=== PATIENT | male | born 1965 | race American Indian/Alaskan Native ===

== ENCOUNTER 2024-06-13 10:04 | Inpatient (IN) | payer BC ==
[2024-06-13 10:47] LABS: HEMATOCRIT 41.7 % (42.0-52.0); HEMOGLOBIN 14.5 g/dL (14.0-18.0); MEAN CORPUSCULAR HEMOGLOBIN 30.7 pg (28.0-32.0); MEAN CORPUSCULAR HGB CONC 34.8 g/dL (32.0-36.0); MEAN CORPUSCULAR VOLUME 88.2 fL (83.0-99.0); MEAN PLATELET VOLUME 8.2 fL (9.4-12.4); PLATELET COUNT,PLT 379 K/uL (150-400); RED BLOOD CELL COUNT 4.73 M/uL (4.52-5.90)
[2024-06-13 10:54] LABS: WHITE BLOOD CELL COUNT,WBC 33.35 K/uL (3.9-11.3)
[2024-06-13] MEDS ORDERED: Sodium Chloride 0.9% 10 ML Syringe FLUSH PRN ×2 (10:54→16:32)
[2024-06-13] MEDS ORDERED: Sodium Chloride 0.9% 2.5 ML Syringe FLUSH PRN ×2 (10:54→16:32)
[2024-06-13 11:15] LABS: A/G RATIO 0.8 (0.9-1.6); ALBUMIN 3.3 g/dL (3.4-5.0); BILIRUBIN TOTAL 1.3 mg/dL (0.2-1.0); CALCIUM 8.7 mg/dL (8.5-10.1); CARBON DIOXIDE,CO2 26.8 mmol/L (21.0-32.0); EST CRCL DRUG DOSING (CG) 66.6 mL/min; POTASSIUM,K 3.9 mmol/L (3.5-5.1); PROTEIN TOTAL,TP 7.4 g/dL (6.4-8.2)
[2024-06-13 11:25] LABS: BAND ABSOLUTE MAN 1.33; BAND PERCENT MAN 4 %; BASOPHILS ABSOLUTE MAN 0.33 K/uL (0.00-0.20); BASOPHILS PERCENT MAN 1 % (0-1); EOSINOPHILS ABSOLUTE MAN 0.33 K/uL (0.00-0.45); EOSINOPHILS PERCENT MAN 1 % (0-6); LYMPHOCYTES ABSOLUTE MAN 3.67 K/uL (1.00-4.80); LYMPHOCYTES PERCENT MAN 11 % (24-44); MONOCYTES ABSOLUTE MAN 1.67 K/uL (0.00-0.80); MONOCYTES PERCENT MAN 5 % (0-8); SEG NEUTROPHILS ABSOLUTE MAN 26.01 K/uL (1.80-7.70); SEG NEUTROPHILS PERCENT MAN 78 % (41-71)
[2024-06-13] MEDS: Sodium Chloride 0.9% 1,000 ML IV ONE ×2 (11:38→14:17)
[2024-06-13] MEDS: Ondansetron 4 MG/2 ML SDV IVPUSH ONE (11:53)
[2024-06-13] MEDS: Piperacillin/Tazobactam 4.5 GM in Sodium Chloride 0.9% 100 ML IV ONE (11:53)
[2024-06-13] MEDS: Morphine 4 MG/ML Syringe IVPUSH ONE ×2 (11:53→13:27)
[2024-06-13] MEDS: Iopamidol 755 MG/ML 500 ML Multipack Bottle IVPUSH STA (12:53)
[2024-06-13 14:03] LABS: HEMOGLOBIN A1C 6.4 %
[2024-06-13 14:54] LABS: APPEARANCE,URINE CLEAR; BILIRUBIN,URINE NEGATIVE (NEGATIVE); COLOR,URINE YELLOW; GLUCOSE,URINE NEGATIVE (NEGATIVE); KETONES,URINE NEGATIVE (NEGATIVE); LEUKOCYTE ESTERASE,URINE NEGATIVE (NEGATIVE); NITRITE,URINE NEGATIVE (NEGATIVE); OCCULT BLOOD,URINE TRACE-INTACT (NEGATIVE); PROTEIN,URINE NEGATIVE (NEGATIVE); UROBILINOGEN,URINE 0.2 EU/dL (<2.0)
[2024-06-13 15:33] LABS: BACTERIA,URINE NOT SEEN (NEGATIVE); EPITHELIAL CELLS,URINE RARE (NONE-FEW); RBC,URINE 0-1 (0-2/HPF); WBC,URINE NONE SEEN (0-5/HPF)
[2024-06-13] MEDS ORDERED: Morphine 4 MG/ML Syringe IVPUSH PRN (16:27)
[2024-06-13] MEDS ORDERED: Naloxone 0.4 MG/ML SDV IVPUSH PRN (16:27)
[2024-06-13] MEDS ORDERED: Glucagon,Human Recombinant 1 MG Vial IM PRN (16:28)
[2024-06-13] MEDS ORDERED: 50% Dextrose in Water 50 ML Syringe IVPUSH PRN (16:28)
[2024-06-13] MEDS ORDERED: Ondansetron 4 MG/2 ML SDV IVPUSH PRN (16:32)
[2024-06-13] MEDS: HYDROmorphone 2 MG/ML Syringe IVPUSH ONE (17:03)
[2024-06-13] MEDS: Enoxaparin 40 MG/0.4 ML Syringe SUBCUT SCH (17:04)
[2024-06-13] MEDS: Pantoprazole 40 MG in Sodium Chloride 0.9% 10 ML IVPUSH SCH (17:04)
[2024-06-13] MEDS: Insulin Aspart 100 Units/ML 3 ML Pen SUBCUT SCH (17:15)
[2024-06-13] MEDS: Morphine 4 MG/ML Syringe IVPUSH PRN (17:26)
[2024-06-13] MEDS: Piperacillin/Tazobactam 4.5 GM in Sodium Chloride 0.9% 100 ML IV SCH (18:14)
[2024-06-13] MEDS: Sodium Chloride 0.9% 1,000 ML IV SCH ×2 (18:15→21:01)
[2024-06-13] MEDS: Acetaminophen/oxyCODONE 325-10 MG Tab PO PRN (21:48)
[2024-06-14 05:43] LABS: HEMATOCRIT 40.2 % (42.0-52.0); HEMOGLOBIN 13.2 g/dL (14.0-18.0); MEAN CORPUSCULAR HEMOGLOBIN 30.3 pg (28.0-32.0); MEAN CORPUSCULAR HGB CONC 32.8 g/dL (32.0-36.0); MEAN CORPUSCULAR VOLUME 92.2 fL (83.0-99.0); MEAN PLATELET VOLUME 8.6 fL (9.4-12.4); PLATELET COUNT,PLT 372 K/uL (150-400); RED BLOOD CELL COUNT 4.36 M/uL (4.52-5.90); WHITE BLOOD CELL COUNT,WBC 27.21 K/uL (3.9-11.3)
[2024-06-14 06:08] LABS: A/G RATIO 0.7 (0.9-1.6); ALBUMIN 2.7 g/dL (3.4-5.0); BILIRUBIN TOTAL 1.6 mg/dL (0.2-1.0); CALCIUM 7.9 mg/dL (8.5-10.1); CARBON DIOXIDE,CO2 26.8 mmol/L (21.0-32.0); EST CRCL DRUG DOSING (CG) 66.6 mL/min; POTASSIUM,K 4.1 mmol/L (3.5-5.1); PROTEIN TOTAL,TP 6.7 g/dL (6.4-8.2)
[2024-06-14 06:10] LABS: LYMPHOCYTES ABSOLUTE MAN 2.99 K/uL (1.00-4.80); LYMPHOCYTES PERCENT MAN 11 % (24-44); MONOCYTES PERCENT MAN 7 % (0-8); SEG NEUTROPHILS ABSOLUTE MAN 22.31 K/uL (1.80-7.70); SEG NEUTROPHILS PERCENT MAN 82 % (41-71)
[2024-06-14] MEDS: Scopalamine 1mg/3day Transdermal Patch TRDERM SCH (16:43)
[2024-06-15 05:47] LABS: BASOPHILS ABSOLUTE AUTO 0.03 K/uL (0.00-0.20); BASOPHILS PERCENT AUTO 0.2 % (0.0-1.0); EOSINOPHILS ABSOLUTE AUTO 0.23 K/uL (0.00-0.45); EOSINOPHILS PERCENT AUTO 1.5 % (0.0-6.0); HEMATOCRIT 35.4 % (42.0-52.0); HEMOGLOBIN 11.8 g/dL (14.0-18.0); IMMATURE GRAN ABSOLUTE AUTO 0.07 K/uL (0.00-0.05); IMMATURE GRAN PERCENT AUTO 0.4 % (0.0-0.4); LYMPHOCYTES ABSOLUTE AUTO 2.39 K/uL (1.00-4.80); LYMPHOCYTES PERCENT AUTO 15.2 % (24.0-44.0); MEAN CORPUSCULAR HEMOGLOBIN 30.6 pg (28.0-32.0); MEAN CORPUSCULAR HGB CONC 33.3 g/dL (32.0-36.0); MEAN CORPUSCULAR VOLUME 91.7 fL (83.0-99.0); MEAN PLATELET VOLUME 8.9 fL (9.4-12.4); MONOCYTES ABSOLUTE AUTO 1.25 K/uL (0.00-0.80); MONOCYTES PERCENT AUTO 7.9 % (0.0-8.0); NEUTROPHILS PERCENT AUTO 74.8 % (41.0-71.0); PLATELET COUNT,PLT 352 K/uL (150-400); RED BLOOD CELL COUNT 3.86 M/uL (4.52-5.90); WHITE BLOOD CELL COUNT,WBC 15.77 K/uL (3.9-11.3)
[2024-06-15 06:10] LABS: A/G RATIO 0.6 (0.9-1.6); ALBUMIN 2.3 g/dL (3.4-5.0); BILIRUBIN TOTAL 1.2 mg/dL (0.2-1.0); CALCIUM 7.6 mg/dL (8.5-10.1); CARBON DIOXIDE,CO2 27.6 mmol/L (21.0-32.0); CREATININE 0.8 mg/dL (0.8-1.3); EST CRCL DRUG DOSING (CG) 83.25 mL/min; MAGNESIUM 2.1 mg/dL (1.8-2.4)
[2024-06-15] MEDS ORDERED: Bupivacaine 0.5% 30 ML SDV ONE ×2 (14:57→15:35)
[2024-06-15] MEDS ORDERED: Propofol 200 MG/20 ML SDV ONE (15:35)
[2024-06-15] MEDS ORDERED: dexmedeTOMIDine HCl 200 MCG/2 ML SDV ONE (15:35)
[2024-06-15] MEDS ORDERED: fentaNYL 100 MCG/2 ML SDV ONE (15:35)
[2024-06-15] MEDS ORDERED: Rocuronium Bromide 50 MG/5 ML Syringe ONE ×2 (15:44→16:54)
[2024-06-15] MEDS ORDERED: Indocyanine Green 25 MG SDV ONE (16:12)
[2024-06-15] MEDS ORDERED: ceFAZolin 1 GM Vial ONE (16:43)
[2024-06-15] MEDS ORDERED: HYDROmorphone 2 MG/ML Syringe ONE (17:03)
[2024-06-15] MEDS ORDERED: Ondansetron 4 MG/2 ML SDV ONE (17:40)
[2024-06-15] MEDS ORDERED: Sugammadex Sodium 200 MG/2 ML VIAL IV ONE (17:40)
[2024-06-15] MEDS ORDERED: Naloxone 0.4 MG/ML SDV ONE (18:19)
[2024-06-15] MEDS ORDERED: HYDROmorphone 0.5 MG/0.5 ML Syringe IVPUSH PRN (18:38)
[2024-06-15] MEDS: Furosemide 20 MG/2 ML VIAL IVPUSH ONE (19:07)
[2024-06-15] MEDS: Furosemide 20 MG/2 ML VIAL ONE (19:10)
[2024-06-15 19:20] LABS: HEMATOCRIT 37.3 % (42.0-52.0); HEMOGLOBIN 12.3 g/dL (14.0-18.0); MEAN CORPUSCULAR HEMOGLOBIN 30.8 pg (28.0-32.0); MEAN CORPUSCULAR VOLUME 93.3 fL (83.0-99.0); MEAN PLATELET VOLUME 8.3 fL (9.4-12.4); PLATELET COUNT,PLT 417 K/uL (150-400); WHITE BLOOD CELL COUNT,WBC 19.45 K/uL (3.9-11.3)
[2024-06-15 19:41] LABS: A/G RATIO 0.6 (0.9-1.6); ALBUMIN 2.4 g/dL (3.4-5.0); BILIRUBIN TOTAL 1.3 mg/dL (0.2-1.0); CARBON DIOXIDE,CO2 31.6 mmol/L (21.0-32.0); EST CRCL DRUG DOSING (CG) 66.6 mL/min; POTASSIUM,K 3.8 mmol/L (3.5-5.1); PROTEIN TOTAL,TP 6.4 g/dL (6.4-8.2)
[2024-06-15] MEDS: Cyclobenzaprine 10 MG Tab PO SCH (19:49)
[2024-06-15] MEDS: Morphine 2 MG/ML SYRINGE IVPUSH PRN (20:39)
[2024-06-15] MEDS ORDERED: Sodium Chloride 0.9% 1,000 ML IV SCH (21:00)
[2024-06-16] MEDS: Acetaminophen/HYDROcodone 325-10 MG Tab PO PRN (03:36)
[2024-06-16 06:00] LABS: BASOPHILS ABSOLUTE AUTO 0.02 K/uL (0.00-0.20); BASOPHILS PERCENT AUTO 0.1 % (0.0-1.0); EOSINOPHILS ABSOLUTE AUTO 0.14 K/uL (0.00-0.45); HEMATOCRIT 35.9 % (42.0-52.0); HEMOGLOBIN 11.8 g/dL (14.0-18.0); IMMATURE GRAN ABSOLUTE AUTO 0.05 K/uL (0.00-0.05); IMMATURE GRAN PERCENT AUTO 0.4 % (0.0-0.4); LYMPHOCYTES ABSOLUTE AUTO 1.73 K/uL (1.00-4.80); LYMPHOCYTES PERCENT AUTO 12.7 % (24.0-44.0); MEAN CORPUSCULAR HEMOGLOBIN 30.2 pg (28.0-32.0); MEAN CORPUSCULAR HGB CONC 32.9 g/dL (32.0-36.0); MEAN CORPUSCULAR VOLUME 91.8 fL (83.0-99.0); MEAN PLATELET VOLUME 8.5 fL (9.4-12.4); MONOCYTES ABSOLUTE AUTO 1.16 K/uL (0.00-0.80); MONOCYTES PERCENT AUTO 8.5 % (0.0-8.0); NEUTROPHILS ABSOLUTE AUTO 10.52 K/uL (1.80-7.70); NEUTROPHILS PERCENT AUTO 77.3 % (41.0-71.0); PLATELET COUNT,PLT 411 K/uL (150-400); RED BLOOD CELL COUNT 3.91 M/uL (4.52-5.90); WHITE BLOOD CELL COUNT,WBC 13.62 K/uL (3.9-11.3)
[2024-06-16 06:27] LABS: A/G RATIO 0.6 (0.9-1.6); ALBUMIN 2.2 g/dL (3.4-5.0); CALCIUM 7.6 mg/dL (8.5-10.1); CARBON DIOXIDE,CO2 30.7 mmol/L (21.0-32.0); CREATININE 0.9 mg/dL (0.8-1.3); POTASSIUM,K 3.7 mmol/L (3.5-5.1); PROTEIN TOTAL,TP 5.8 g/dL (6.4-8.2)
[2024-06-16] MEDS: Losartan 50 MG Tab PO SCH (09:34)
[2024-06-16] MEDS: Insulin Aspart 100 Units/ML 3 ML Pen SUBCUT SCH (18:09)
[2024-06-16] MEDS: Enoxaparin 40 MG/0.4 ML Syringe SUBCUT SCH (18:18)
[2024-06-16] MEDS: Multivitamin Tab PO SCH (20:30)
[2024-06-17 05:33] LABS: BASOPHILS ABSOLUTE AUTO 0.07 K/uL (0.00-0.20); BASOPHILS PERCENT AUTO 0.5 % (0.0-1.0); EOSINOPHILS ABSOLUTE AUTO 0.29 K/uL (0.00-0.45); EOSINOPHILS PERCENT AUTO 2.2 % (0.0-6.0); HEMATOCRIT 35.2 % (42.0-52.0); HEMOGLOBIN 11.8 g/dL (14.0-18.0); IMMATURE GRAN PERCENT AUTO 0.8 % (0.0-0.4); LYMPHOCYTES ABSOLUTE AUTO 2.38 K/uL (1.00-4.80); LYMPHOCYTES PERCENT AUTO 17.9 % (24.0-44.0); MEAN CORPUSCULAR HEMOGLOBIN 30.3 pg (28.0-32.0); MEAN CORPUSCULAR HGB CONC 33.5 g/dL (32.0-36.0); MEAN CORPUSCULAR VOLUME 90.5 fL (83.0-99.0); MEAN PLATELET VOLUME 8.2 fL (9.4-12.4); MONOCYTES ABSOLUTE AUTO 1.16 K/uL (0.00-0.80); MONOCYTES PERCENT AUTO 8.7 % (0.0-8.0); NEUTROPHILS PERCENT AUTO 69.9 % (41.0-71.0); PLATELET COUNT,PLT 441 K/uL (150-400); RED BLOOD CELL COUNT 3.89 M/uL (4.52-5.90)
[2024-06-17 06:00] LABS: A/G RATIO 0.5 (0.9-1.6); BILIRUBIN TOTAL 0.7 mg/dL (0.2-1.0); CALCIUM 8.3 mg/dL (8.5-10.1); CARBON DIOXIDE,CO2 33.8 mmol/L (21.0-32.0); CREATININE 0.9 mg/dL (0.8-1.3); MAGNESIUM 1.9 mg/dL (1.8-2.4); POTASSIUM,K 3.5 mmol/L (3.5-5.1); PROTEIN TOTAL,TP 5.8 g/dL (6.4-8.2)
[2024-06-17] MEDS: Pantoprazole 40 MG Tab.CR PO SCH (06:45)
[2024-06-17] MEDS ORDERED: Ciprofloxacin in D5W 400 MG in Premix Bag 1 BAG IV SCH (08:15)
[2024-06-17] MEDS ORDERED: metroNIDAZOLE/Normal Saline 500 MG in Premix Bag 1 BAG IV SCH (08:15)
[2024-06-17] MEDS: Ciprofloxacin 500 MG Tab PO SCH (09:10)
[2024-06-17] MEDS: metroNIDAZOLE 250 MG Tab PO SCH (09:11)
[2024-06-17] MEDS ORDERED: Sennosides/Docusate Sodium 50-8.6 MG Tab PO ONE (12:22)
[2024-06-17] MEDS: Sennosides/Docusate Sodium 50-8.6 MG Tab PO ONE (13:00)
[2024-06-17] MEDS: Piperacillin/Tazobactam 4.5 GM in Sodium Chloride 0.9% 100 ML IV SCH (17:57)
[2024-06-18] MEDS ORDERED: Sennosides/Docusate Sodium 50-8.6 MG Tab PO ONE (09:00)
== END 2024-06-17 20:30 | DRG 263 ==
LOC: MW.ED 10:04 → MW.MS 15:57 → MW.ICU 06-15 19:11 → MW.MS 06-16 16:18
PROVIDERS: ADMIT Internal Medicine; ATTEND Internal Medicine
PROC: 0FJ44ZZ Inspection of Gallbladder, Percutaneous Endoscopic Approach (ICD-10-PCS; 2024-06-15)
PROC: 0FT40ZZ Resection of Gallbladder, Open Approach (ICD-10-PCS; principal; 2024-06-15 13:15)
DX: K80.00 Calculus of gallbladder with acute cholecystitis without obstruction (principal); E78.5 Hyperlipidemia, unspecified; I10 Essential (primary) hypertension; K82.A1 Gangrene of gallbladder in cholecystitis; R06.81 Apnea, not elsewhere classified; E11.9 Type 2 diabetes mellitus without complications; R74.01 Elevation of levels of liver transaminase levels; E80.6 Other disorders of bilirubin metabolism; E66.9 Obesity, unspecified; Z79.4 Long term (current) use of insulin; Z68.34 Body mass index [BMI] 34.0-34.9, adult
CPT/HCPCS: 36415; 64488; 71045; 71045-26; 74177; 74177-26; 74181; 74181-26; 76705; 76705-26; 80053; 81001; 82947; 83036; 83605; 83690; 83735; 84100; 85025; 85027; 86850; 86900; 86901; 87040; 87070; 87075; 87077; 87186; 87205; 99284; 99285; A9270-GY; J0131; J0665; J0690; J1170; J1650; J1815-GY; J1940; J2270; J2310; J2405; J2470; J2543; J2704; J3010; J3490; J7030; Q9967

== ENCOUNTER 2025-07-27 09:31 | Day surgery (SDC) | payer BC, OTHER ==
[2025-07-27] MEDS: Lactated Ringers 1,000 ML IV SCH (10:20)
[2025-07-27] MEDS ORDERED: propofoL 500 MG/50 ML 50 ML ONE (11:28)
== END 2025-07-27 12:49 | disposition home or self-care (01) ==
LOC: MW.SDS 09:31
PROVIDERS: ATTEND Surgery
DX: Z12.11 Encounter for screening for malignant neoplasm of colon (principal); D12.2 Benign neoplasm of ascending colon; K63.5 Polyp of colon; K57.30 Diverticulosis of large intestine without perforation or abscess without bleeding; I10 Essential (primary) hypertension; Z88.6 Allergy status to analgesic agent; Z79.84 Long term (current) use of oral hypoglycemic drugs; Z79.899 Other long term (current) drug therapy
CPT/HCPCS: 45380; 45385; J2003; J2704; J7120; 00811; G0145